=== PATIENT | male | born 1965 | race Two or more races ===

== ENCOUNTER 2024-01-28 22:50 | Inpatient (IN) | payer OTHER ==
[~2024-01-28] VITALS: Ht 167.6 cm; Wt 95.9 kg
[2024-01-28 23:00] VITALS: PULSE 74; RESP 22; O2SAT 96
[2024-01-28 23:24] LABS: Basophils # (auto) 0.1 10 ^3/uL (0-0.2); Basophils % (auto) 0.8 % (0.0-2.0); Eosinophils # (auto) 0.2 10 ^3/uL (0-0.8); Eosinophils % (auto) 1.5 % (0.0-7.0); Hematocrit 48.5 % (41.0-53.0); Hemoglobin 16.4 g/dL (13.5-17.5); Lymphocytes # (auto) 4.4 10 ^3/uL (0.4-5.4); Lymphocytes % (auto) 37.1 % (10.0-50.0); Mean Corpuscular Hemoglobin 29.4 pg (28.0-32.0); Mean Corpuscular Hgb Conc. 33.8 g/dL (32.0-36.0); Mean Corpuscular Volume 86.8 fL (80.0-100.0); Monocytes # (auto) 0.8 10 ^3/uL (0-1.3); Monocytes % (auto) 6.5 % (0.0-12.0); Neutrophils # (auto) 6.4 10 ^3/uL (1.6-8.6); Neutrophils % (auto) 54.1 % (37.0-80.0); Red Blood Cells 5.58 10^6/uL (4.5-5.90); Red Cell Distribution Width 14.1 % (11.8-14.3); White Blood Cell 11.9 10^3/uL (4.4-10.8)
[2024-01-28 23:40] LABS: INR 1.05 (0.9-1.15); Partial Thromboplastin Time 32.5 SEC (24.5-34.5)
[2024-01-28 23:44] LABS: Alanine Aminotransferase 39 U/L (7-40); Albumin 4.5 g/dL (3.2-4.8); Alkaline Phosphatase 60 U/L (46-116); Anion Gap 6 (5-15); Aspartate Aminotransferase 77 U/L (13-40); Bilirubin, Total 0.6 mg/dL (0.2-1.0); Blood Urea Nitrogen 9 mg/dL (9-23); Calcium 9.8 mg/dL (8.7-10.4); Carbon Dioxide 24 mmol/L (20-30); Chloride 108 mmol/L (98-107); Glucose 115 mg/dL (74-106); Potassium 3.8 mmol/L (3.5-5.1); Sodium 138 mmol/L (136-145); Total Protein 7.5 g/dL (5.7-8.2)
[2024-01-29] MEDS ORDERED: ACETAMINOPHEN 325 MG TAB PO PRN (02:30)
[2024-01-29] MEDS ORDERED: MORPHINE SULFATE INJ 2 MG/ml SYRG IV PRN ×2 (02:30→03:30)
[2024-01-29] MEDS ORDERED: DOCUSATE SOD 100 MG CAP PO PRN (02:30)
[2024-01-29] MEDS ORDERED: HYDROcodone-ACET 5/325MG TAB PO PRN (02:30)
[2024-01-29] MEDS: SODIUM CHLORIDE 0.9% 1,000 ML IV SCH (02:30)
[2024-01-29] MEDS ORDERED: ONDANSETRON HCL 4 MG/2 ML VIAL IV PRN (02:30)
[2024-01-29] MEDS ORDERED: NITROGLYCERIN 0.4 MG SL TAB SL PRN (03:30)
[2024-01-29 07:13] LABS: Basophils # (auto) 0.1 10 ^3/uL (0-0.2); Basophils % (auto) 0.9 % (0.0-2.0); Eosinophils # (auto) 0.4 10 ^3/uL (0-0.8); Hematocrit 45.6 % (41.0-53.0); Hemoglobin 15.3 g/dL (13.5-17.5); Lymphocytes # (auto) 3.6 10 ^3/uL (0.4-5.4); Lymphocytes % (auto) 39.4 % (10.0-50.0); Mean Corpuscular Hemoglobin 29.2 pg (28.0-32.0); Mean Corpuscular Hgb Conc. 33.6 g/dL (32.0-36.0); Mean Corpuscular Volume 87.1 fL (80.0-100.0); Monocytes # (auto) 0.7 10 ^3/uL (0-1.3); Monocytes % (auto) 7.6 % (0.0-12.0); Neutrophils # (auto) 4.3 10 ^3/uL (1.6-8.6); Neutrophils % (auto) 48.1 % (37.0-80.0); Nucleated Red Blood Cells % 0.2 %; Red Blood Cells 5.24 10^6/uL (4.5-5.90); Red Cell Distribution Width 14.2 % (11.8-14.3)
[2024-01-29 07:30] LABS: Alanine Aminotransferase 41 U/L (7-40); Albumin 4.2 g/dL (3.2-4.8); Alkaline Phosphatase 57 U/L (46-116); Anion Gap 6 (5-15); Aspartate Aminotransferase 90 U/L (13-40); BUN/Creatinine Ratio 8.6 (10.0-20.0); Bilirubin, Total 0.7 mg/dL (0.2-1.0); Blood Urea Nitrogen 11 mg/dL (9-23); Calcium 9.1 mg/dL (8.5-10.1); Carbon Dioxide 29 mmol/L (20-30); Chloride 106 mmol/L (98-107); Glucose 110 mg/dL (74-106); Potassium 3.7 mmol/L (3.5-5.1); Sodium 141 mmol/L (136-145); Total Protein 6.9 g/dL (5.7-8.2)
[2024-01-29 08:00] VITALS: PULSE 74
[2024-01-29] MEDS ORDERED: HEPARIN SODIUM (PORCINE) 5000 UNITS/ML 1ML VIAL IV ONE (08:45)
[2024-01-29 09:00] VITALS: BP 135/85; PULSE 75; RESP 18; TEMP 97.7; O2SAT 94
[2024-01-29 10:57] LABS: INR 1.04 (0.9-1.15); Partial Thromboplastin Time 31.4 SEC (24.5-34.5); Prothrombin Time 10.9 sec (9.3-11.8)
[2024-01-29] MEDS: ASPirin 81 mg TAB PO SCH (11:11)
[2024-01-29] MEDS: CLOPIDOGREL BISULFATE 75 MG TAB PO ONE (11:11)
[2024-01-29] MEDS: FAMOTIDINE (10MG/ML) 2ML VL IV SCH (11:11)
[2024-01-29] MEDS: HEPARIN DRIP/D5W 100UNITS/ML 250 ML IV SCH (12:03)
[2024-01-29 13:00] VITALS: BP 129/85; PULSE 85; RESP 18; TEMP 97.5; O2SAT 98
[2024-01-29] MEDS: ANGIOMAX 250 MG VIAL IV ONE (15:15)
[2024-01-29] MEDS: VERAPAMIL 2.5MG/ML INJ 2ML VIAL IV ONE (15:15)
[2024-01-29] MEDS: MIDAZOLAM HCL 2MG/2ML 2ml VIAL (1mg/ml) ONE (15:16)
[2024-01-29] MEDS: fentaNYL CITRATE 100 MCG/2 ML VL ONE (15:16)
[2024-01-29] MEDS: LIDOCAINE 2%HCL (LOCAL ANESTH.) INJ 20ML MDV ONE (15:16)
[2024-01-29] MEDS: SODIUM CHL 0.9% 0 ML ONE (15:16)
[2024-01-29] MEDS: IODIXANOL 320MG/ML 100ML BTL IV ONE (15:47)
[2024-01-29 17:00] VITALS: BP 131/92; PULSE 89; RESP 18; TEMP 97.6; O2SAT 96
[2024-01-29 19:27] LABS: INR 1.04 (0.9-1.15); Prothrombin Time 10.9 sec (9.3-11.8)
[2024-01-29 20:00] VITALS: PULSE 87; PULSE 93; RESP 17; O2SAT 95
[2024-01-29 21:00] VITALS: BP 137/88; PULSE 87; RESP 17; TEMP 98.2; O2SAT 95
[2024-01-29] MEDS ORDERED: ATORVASTATIN 20 MG TAB PO SCH ×2 (22:00)
[2024-01-29] MEDS: ATORVASTATIN 20 MG TAB PO SCH (22:24)
[2024-01-30 03:16] LABS: Basophils # (auto) 0.1 10 ^3/uL (0-0.2); Basophils % (auto) 0.6 % (0.0-2.0); Eosinophils # (auto) 0.3 10 ^3/uL (0-0.8); Eosinophils % (auto) 3.2 % (0.0-7.0); Hematocrit 49.4 % (41.0-53.0); Hemoglobin 16.5 g/dL (13.5-17.5); Lymphocytes # (auto) 3.1 10 ^3/uL (0.4-5.4); Lymphocytes % (auto) 28.1 % (10.0-50.0); Mean Corpuscular Hemoglobin 29.5 pg (28.0-32.0); Mean Corpuscular Hgb Conc. 33.4 g/dL (32.0-36.0); Mean Corpuscular Volume 88.5 fL (80.0-100.0); Monocytes # (auto) 0.7 10 ^3/uL (0-1.3); Monocytes % (auto) 6.8 % (0.0-12.0); Neutrophils # (auto) 6.7 10 ^3/uL (1.6-8.6); Neutrophils % (auto) 61.3 % (37.0-80.0); Nucleated Red Blood Cells % 0.1 %; Red Blood Cells 5.59 10^6/uL (4.5-5.90); Red Cell Distribution Width 14.4 % (11.8-14.3)
[2024-01-30 03:33] LABS: INR 1.03 (0.9-1.15); Prothrombin Time 10.8 sec (9.3-11.8)
[2024-01-30 03:37] LABS: Alanine Aminotransferase 38 U/L (7-40); Albumin 4.2 g/dL (3.2-4.8); Alkaline Phosphatase 62 U/L (46-116); Anion Gap 7 (5-15); Aspartate Aminotransferase 58 U/L (13-40); BUN/Creatinine Ratio 7.2 (10.0-20.0); Blood Urea Nitrogen 8 mg/dL (9-23); Calcium 9.7 mg/dL (8.7-10.4); Carbon Dioxide 23 mmol/L (20-30); Chloride 107 mmol/L (98-107); Glucose 108 mg/dL (74-106); Potassium 3.7 mmol/L (3.5-5.1); Sodium 137 mmol/L (136-145)
[2024-01-30 03:38] LABS: Total Protein 7.2 g/dL (5.7-8.2)
[2024-01-30 05:00] VITALS: BP 113/78; PULSE 91; RESP 18; TEMP 98; O2SAT 95
[2024-01-30 08:00] VITALS: PULSE 134; RESP 18
[2024-01-30 08:37] LABS: Magnesium 2.1 mg/dL (1.6-2.6)
[2024-01-30] MEDS ORDERED: CLOPIDOGREL BISULFATE 75 MG TAB PO SCH (10:00)
[2024-01-30 10:54] LABS: INR 1.04 (0.9-1.15); Partial Thromboplastin Time 53.9 SEC (24.5-34.5); Prothrombin Time 10.9 sec (9.3-11.8)
[2024-01-30 13:00] VITALS: BP 125/74; PULSE 92; RESP 21; TEMP 97.6; O2SAT 93
[2024-01-30 16:58] LABS: INR 1.03 (0.9-1.15); Partial Thromboplastin Time 59.3 SEC (24.5-34.5); Prothrombin Time 10.8 sec (9.3-11.8)
[2024-01-30 17:00] VITALS: BP 122/81; PULSE 97; RESP 18; TEMP 98.4; O2SAT 95
[2024-01-30 20:00] VITALS: PULSE 105; RESP 17; O2SAT 95
[2024-01-30 21:00] VITALS: BP 125/87; PULSE 95; RESP 18; TEMP 98.3; O2SAT 96
[2024-01-31 05:00] VITALS: BP 94/64; PULSE 90; RESP 17; TEMP 98.2; O2SAT 100
[2024-01-31 06:04] LABS: Basophils # (auto) 0.1 10 ^3/uL (0-0.2); Basophils % (auto) 0.6 % (0.0-2.0); Eosinophils # (auto) 0.4 10 ^3/uL (0-0.8); Eosinophils % (auto) 4.5 % (0.0-7.0); Hematocrit 47.3 % (41.0-53.0); Hemoglobin 15.9 g/dL (13.5-17.5); Lymphocytes % (auto) 41.1 % (10.0-50.0); Mean Corpuscular Hemoglobin 29.4 pg (28.0-32.0); Mean Corpuscular Hgb Conc. 33.5 g/dL (32.0-36.0); Mean Corpuscular Volume 87.7 fL (80.0-100.0); Monocytes # (auto) 0.8 10 ^3/uL (0-1.3); Monocytes % (auto) 7.9 % (0.0-12.0); Neutrophils # (auto) 4.5 10 ^3/uL (1.6-8.6); Neutrophils % (auto) 45.9 % (37.0-80.0); Nucleated Red Blood Cells % 0.2 %; Red Cell Distribution Width 14.4 % (11.8-14.3); White Blood Cell 9.8 10^3/uL (4.4-10.8)
[2024-01-31 06:19] LABS: Alanine Aminotransferase 35 U/L (7-40); Albumin 4.4 g/dL (3.2-4.8); Alkaline Phosphatase 64 U/L (46-116); Anion Gap 6 (5-15); Aspartate Aminotransferase 40 U/L (13-40); BUN/Creatinine Ratio 10.8 (10.0-20.0); Blood Urea Nitrogen 14 mg/dL (9-23); Calcium 9.4 mg/dL (8.7-10.4); Carbon Dioxide 27 mmol/L (20-30); Chloride 105 mmol/L (98-107); Glucose 119 mg/dL (74-106); Magnesium 2.2 mg/dL (1.6-2.6); Potassium 3.9 mmol/L (3.5-5.1); Sodium 138 mmol/L (136-145)
[2024-01-31 06:20] LABS: Bilirubin, Total 1.1 mg/dL (0.2-1.0); Total Protein 7.4 g/dL (5.7-8.2)
[2024-01-31 07:46] LABS: INR 1.04 (0.9-1.15); Prothrombin Time 10.9 sec (9.3-11.8)
[2024-01-31 08:00] VITALS: PULSE 77; RESP 18
[2024-01-31 09:00] VITALS: BP 120/79; PULSE 82; RESP 16; TEMP 97.6; O2SAT 97
[2024-01-31 13:00] VITALS: BP 116/81; PULSE 81; RESP 16; TEMP 97.7; O2SAT 95
== END 2024-01-31 15:00 | disposition short-term general hospital (02) | DRG 282 ==
LOC: ER 22:50 → TELE 01-29 03:39 → TELE-EAST 01-29 03:39
PROVIDERS: ADMIT Internal Medicine Pulmonary Disease; ATTEND Internal Medicine Pulmonary Disease
PROC: 4A023N7 Measurement of Cardiac Sampling and Pressure, Left Heart, Percutaneous Approach (ICD-10-PCS; principal; 2024-01-29)
PROC: B211YZZ Fluoroscopy of Multiple Coronary Arteries using Other Contrast (ICD-10-PCS; 2024-01-29)
PROC: B41FYZZ Fluoroscopy of Right Lower Extremity Arteries using Other Contrast (ICD-10-PCS; 2024-01-29)
DX: I21.4 Non-ST elevation (NSTEMI) myocardial infarction (principal); I25.10 Atherosclerotic heart disease of native coronary artery without angina pectoris; I10 Essential (primary) hypertension; E66.9 Obesity, unspecified; E78.00 Pure hypercholesterolemia, unspecified; R73.03 Prediabetes; R74.01 Elevation of levels of liver transaminase levels; Z87.891 Personal history of nicotine dependence; Z68.34 Body mass index [BMI] 34.0-34.9, adult
CPT/HCPCS: 36415; 71045; 75710; 80053; 80061; 83036; 83735; 84443; 84484; 85025; 85610; 85730; 93005; 93306; 93458; 99152; 99291; C1894; G0378; J2250; J3490; Q9967